=== PATIENT | female | born 1990 | race Caucasian/White ===

== ENCOUNTER 2018-07-04 15:31 | Observation (INO) | payer OTHER ==
[2018-07-04] MEDS ORDERED: SODIUM CHLORIDE 1,000 ML IV STA (15:50)
--- NOTE | 2018-07-04 15:50 | PDOC ---
Rapid Medical Evaluation Chief Complaint: Pain, Acute Time Seen by Provider: 07/04/18 15:49 Medical Evaluation: Allergies Allergy/AdvReac Type Severity Reaction Status Date / Time No Known Allergies Allergy Verified 07/04/18 15:47 07/04/18 15:49 I have performed a brief in-person evaluation of this patient. The patient presents with a chief complaint of: lower abdominal pain Pertinent physical exam findings: lower abd tenderness I have ordered the following: labs, urine, stool The patient will proceed to the ED for further evaluation. Discharge Disposition - Diagnosis Abdominal pain - Referrals - Patient Instructions - Post Discharge Activity
--- NOTE | 2018-07-04 16:39 | PDOC ---
History of Present Illness - General Chief Complaint: Pain, Acute Stated Complaint: STOMACH PAIN Time Seen by Provider: 07/04/18 15:49 - History of Present Illness Initial Comments: 07/04/18 16:38 Ms. Aguilar is a 27 yo female w/ pmh of ulcerative colitis and pancreatitis who presents for evaluation of nausea, vomiting, diarrhea, and diffuse abdominal pain. Patient reports she does not follow with a GI doctor however has been taking mezalamine proscribed through various ERs for her UC w/ lessening efficacy for the past year. Patient reports she presented to [facility] ER 4 weeks ago for similar symptoms and was given steroids which improved symptoms. Most recent episode started 5 days ago on 06/29 and she went to [facility] for evaluation. Patient was given steroids then with some relief of symptoms however symptoms returned, prompting return today. Patient had imaging only of lower extremities for some leg swelling at that time. Patient reports she has had single emesis this AM and multiple episodes of bloody bowel movements for the last several days. She has also had fevers responsive to tylenol as well. The patient denies chest pain, shortness of breath, headache and dizziness. Denies chills and constipation. Denies dysuria, frequency, urgency and hematuria. Past History - Past Medical History Allergies/Adverse Reactions: Allergies Allergy/AdvReac Type Severity Reaction Status Date / Time No Known Allergies Allergy Verified 07/04/18 15:47 COPD: No GI Disorders: Yes (ULCERATIVE COLITIS) - Immunization History Immunization Up to Date: Yes - Suicide/Smoking/Psychosocial Hx Smoking History: Never smoked Hx Alcohol Use: No Drug/Substance Use Hx: No Review of Systems - Review of Systems Comments:: 07/04/18 16:39 GENERAL/CONSTITUTIONAL: +Fever as described. No chills. No weakness. HEAD, EYES, EARS, NOSE AND THROAT: No change in vision. No ear pain or discharge. No sore throat. CARDIOVASCULAR: No chest pain or shortness of breath RESPIRATORY: No cough, wheezing, or hemoptysis. GASTROINTESTINAL: +N/V/D as described. GENITOURINARY: No dysuria, frequency, or change in urination. MUSCULOSKELETAL: No joint or muscle swelling or pain. No neck or back pain. SKIN: No rash NEUROLOGIC: No headache, vertigo, loss of consciousness, or change in strength/ sensation. ENDOCRINE: No increased thirst. No abnormal weight change HEMATOLOGIC/LYMPHATIC: No anemia, easy bleeding, or history of blood clots. ALLERGIC/IMMUNOLOGIC: No hives or skin allergy. *Physical Exam - Vital Signs Last Vital Signs Temp Pulse Resp BP Pulse Ox 98.5 F 102 H 18 114/73 97 07/04/18 15:48 07/04/18 15:48 07/04/18 15:48 07/04/18 15:48 07/04/18 15:48 - Physical Exam Comments: 07/04/18 16:39 GENERAL: Awake, alert, and fully oriented, in no acute distress HEAD: No signs of trauma, normocephalic, atraumatic EYES: PERRLA, EOMI, sclera anicteric, conjunctiva clear ENT: Auricles normal inspection, hearing grossly normal, nares patent, oropharynx clear without exudates. Moist mucosa NECK: Normal ROM, supple, no lymphadenopathy, JVD, or masses LUNGS: No distress, speaks full sentences, clear to auscultation bilaterally HEART: Regular rate and rhythm, normal S1 and S2, no murmurs, rubs or gallops, peripheral pulses normal and equal bilaterally. ABDOMEN: +Diffuse abdominal TTP. Soft, normoactive bowel sounds. No guarding, no rebound. No masses EXTREMITIES: Normal inspection, Normal range of motion, no edema. No clubbing or cyanosis. NEUROLOGICAL: Cranial nerves II through XII grossly intact. Normal speech, normal gait, no focal sensorimotor deficits SKIN: Warm, Dry, normal turgor, no rashes or lesions noted. ED Treatment Course - LABORATORY CBC & Chemistry Diagram: 07/04/18 17:30 07/04/18 16:55 Medical Decision Making - Medical Decision Making 07/04/18 18:48 Ms. Aguilar is a 27 yo female w/ pmh as described who presents for evaluation of symptoms concerning for UC flare vs. pancreatitis vs. acute abdominal process. Upon repeat interview patient endorsed that she has never had colonoscopy. Patient has had no recent imaging at this time. Will evaluate patient with broad laboratory workup as well as CT abd/pelvis for further evaluation of pain. Patient also given IV fluids and tylenol for symptomatic relief at this time. Patient refused rectal exam at this time. 07/04/18 19:14 Patient signed out to Dr. Cabrera for further evaluation. *DC/Admit/Observation/Transfer Diagnosis at time of Disposition: Abdominal pain Qualifiers: Abdominal location: unspecified location Qualified Code(s): R10.9 - Unspecified abdominal pain - Referrals - Patient Instructions - Post Discharge Activity
[2018-07-04] MEDS ORDERED: ACETAMINOPHEN 1000 MG/100 ML VIAL (NON FORMULARY) IVPB ONE (17:07)
[2018-07-04] MEDS ORDERED: ACETAMINOPHEN INJECTION 100 ML IVPB ONE (17:33)
[2018-07-04 17:55] LABS: BASO % 0.4 % (0-2.0); EOS % 1.2 % (0-4.5); HEMATOCRIT 33.6 % (32.4-45.2); HEMOGLOBIN 10.6 GM/dL (10.7-15.3); LYMPH % 43.9 % (8-40); MCHC 31.5 g/dl (32.0-36.0); MEAN CELL VOLUME 76.2 fl (80-96); MEAN PLT VOLUME 7.2 fl (7.5-11.1); MONO % 9.1 % (3.8-10.2); NEUT % 45.4 % (42.8-82.8); PLATELET COUNT 411 K/MM3 (134-434); RBC 4.41 M/mm3 (3.60-5.2); RDW 17.6 % (11.6-15.6); WHITE BLOOD COUNT 6.6 K/mm3 (4.0-10.0)
[2018-07-04 18:10] LABS: INR 1.09 (0.83-1.09); PROTHROMBIN TIME (PATIENT) 12.9 SEC (9.7-13.0)
[2018-07-04 18:18] LABS: EPI CELLS 1.8 /HPF (0-5/HPF); PH,URINE 5.5 (5.0-8.0); URINE APPEARANCE CLEAR; URINE BACTERIA 131.2 /hpf (NEGATIVE); URINE BILIRUBIN NEGATIVE (NEGATIVE); URINE CASTS 7 /lpf (0-8); URINE COLOR YELLOW; URINE GLUCOSE (UA) NEGATIVE (NEGATIVE); URINE KETONE 1+ (NEGATIVE); URINE LEUK ESTERASE NEGATIVE (NEGATIVE); URINE NITRITE NEGATIVE (NEGATIVE); URINE PROTEIN NEGATIVE (NEGATIVE); URINE UROBILINOGEN 0.2 mg/dL (0.2-1.0); URINE WBC 2 /hpf (0-5)
[2018-07-04 18:23] LABS: ALBUMIN 2.8 g/dl (3.4-5.0); ALK PHOS 104 U/L (45-117); ANION GAP 7 MMOL/L (8-16); BILIRUBIN,TOTAL 0.2 mg/dL (0.2-1); BLOOD UREA NITROGEN 8 mg/dL (7-18); CALCIUM 8.4 mg/dL (8.5-10.1); CHLORIDE 101 mmol/L (98-107); CO2 28 mmol/L (21-32); CREATININE 0.6 mg/dL (0.55-1.3); GLUCOSE,RANDOM 92 mg/dL (74-106); LIPASE 90 U/L (73-393); POTASSIUM 4.4 mmol/L (3.5-5.1); SGOT/AST 8 U/L (15-37); SGPT/ALT 12 U/L (13-61); SODIUM 135 mmol/L (136-145); TOT PROT 6.8 g/dl (6.4-8.2)
[2018-07-04 19:19] LABS: URINE RBC 5.1 /hpf (0-4)
--- NOTE | 2018-07-04 19:23 | PDOC ---
*Physical Exam - Vital Signs Last Vital Signs Temp Pulse Resp BP Pulse Ox 98.6 F 100 H 18 108/68 97 07/04/18 18:24 07/04/18 18:24 07/04/18 15:48 07/04/18 18:24 07/04/18 18:24 ED Treatment Course - LABORATORY CBC & Chemistry Diagram: 07/04/18 17:30 07/04/18 16:55 - ADDITIONAL ORDERS Additional order review: Laboratory Results 07/04/18 07/04/18 07/04/18 18:17 18:07 17:07 PT with INR INR Sodium Potassium Chloride Carbon Dioxide Anion Gap BUN Creatinine Creat Clearance w eGFR Random Glucose Lactic Acid 1.4 Calcium Total Bilirubin AST ALT Alkaline Phosphatase C-Reactive Protein Total Protein Albumin Lipase Serum , Qual Negative Urine Color Yellow Urine Appearance Clear Urine pH 5.5 Ur Specific [place] 1.020 Urine Protein Negative Urine Glucose (UA) Negative Urine Ketones 1+ H Urine Blood 2+ H Urine Nitrite Negative Urine Bilirubin Negative Urine Urobilinogen 0.2 Ur Leukocyte Esterase Negative Urine WBC (Auto) 2 Urine RBC (Auto) 5.1 Urine Casts (Auto) 7 U Epithel Cells (Auto) 1.8 Urine Bacteria (Auto) 131.2 07/04/18 07/04/18 16:55 16:55 PT with INR 12.90 INR 1.09 Sodium 135 L Potassium 4.4 Chloride 101 Carbon Dioxide 28 Anion Gap 7 L BUN 8 Creatinine 0.6 Creat Clearance w eGFR 119.04 Random Glucose 92 Lactic Acid Calcium 8.4 L Total Bilirubin 0.2 AST 8 L ALT 12 L Alkaline Phosphatase 104 C-Reactive Protein 11.0 H Total Protein 6.8 Albumin 2.8 L Lipase 90 Serum , Qual Urine Color Urine Appearance Urine pH Ur Specific [place] Urine Protein Urine Glucose (UA) Urine Ketones Urine Blood Urine Nitrite Urine Bilirubin Urine Urobilinogen Ur Leukocyte Esterase Urine WBC (Auto) Urine RBC (Auto) Urine Casts (Auto) U Epithel Cells (Auto) Urine Bacteria (Auto) 07/04/18 17:30 RBC 4.41 MCV 76.2 L MCHC 31.5 L RDW 17.6 H MPV 7.2 L Neutrophils % 45.4 Lymphocytes % 43.9 H Monocytes % 9.1 Eosinophils % 1.2 Basophils % 0.4 - Medications Given in the ED: ED Medications Discontinued Medications Generic Name Dose Route Start Last Admin Trade Name Anahi PRN Reason Stop Dose Admin Acetaminophen 1,000 mg 07/04/18 17:07 07/04/18 17:39 Ofirmev Injection - IVPB 07/04/18 17:08 1,000 mg ONCE ONE Administration Sodium Chloride 1,000 mls @ 1,000 mls/hr 07/04/18 15:50 07/04/18 17:32 Normal Saline - IV 07/04/18 16:49 1,000 mls/hr ASDIR STA Administration Medical Decision Making - Medical Decision Making 07/04/18 19:23 Pt signed out to me by Dr. Caicedo. 27F who presents with abd pain pending CTAP. 07/04/18 20:34 CTAP Impression: Fluid-filled slightly dilated small bowel loops that may be on the basis of ileus. Normal- appearing terminal ileum and appendix. Thickening of the distal transverse colon, thickening of the descending and proximal sigmoid colon wall as well as probable thickening of the rectosigmoid junction wall. Findings are suggestive of colitis, inflammatory versus infectious. Consider ulcerative colitis in view of the clinical history. GI consult is suggested. Case d/w GI, Dr. Aquino, who agrees with our decision to admit pt and have colonoscopy in the am. Will begin abx. Pt microblogged for admission. 07/04/18 21:[address] Hart for admission. *DC/Admit/Observation/Transfer Diagnosis at time of Disposition: Colitis Abdominal pain Qualifiers: Abdominal location: unspecified location Qualified Code(s): R10.9 - Unspecified abdominal pain - Discharge Dispostion Condition at time of disposition: Guarded Decision to Admit order: Yes - Referrals - Patient Instructions - Post Discharge Activity
[2018-07-04] MEDS ORDERED: CIPROFLOXACIN 400 MG/D5W 400 MG/200 ML IVPB IVPB ONE (20:40)
--- NOTE | 2018-07-04 21:28 | PN ---
Teaching Attending Note Name of Resident: Janette Hart ATTENDING PHYSICIAN STATEMENT I saw and evaluated the patient. I reviewed the resident's note and discussed the case with the resident. I agree with the resident's findings and plan as documented. SUBJECTIVE: Patient is a 27 year old woman with a PMH of ulcertive colitis on mesalamine, anemia and pancreatitis, who presents to the ER with complaint of nausea, vomiting, bloody diarrhea, and diffuse abdominal pain. The patient reportedly presented to [facility] ER 4 weeks ago for similar symptoms and was given steroids which improved her symptoms. She states she went to [place] ER for evaluation on 06/29/18, was given IV steroids then with some relief of symptoms however symptoms returned, prompting return today. The patient denies chest pain , shortness of breath, headache and dizziness. The patient denies fever, chills constipation. The patient denies dysuria, frequency, urgency and hematuria. Says she has had up to 10 bouts of UC flareup since her diagnosis about 1 year ago. She does not remember the name of her GI doctor or the dose/frequency of her mesalamine. She is currently having her period. OBJECTIVE: Alert Vital Signs Period Temp Pulse Resp BP Sys/Tubbs Pulse Ox Last 24 Hr 98.5 F-98.6 F 100-102 18 108-114/68-73 97-97 HEENT: No Jaundice, eye redness or discharge, PERRLA, EOMI. Normocephalic, atraumatic. External ears are normal and hearing is grossly intact. No nasal discharge. Neck: Supple, nontender. No palpable adenopathy or thyromegaly. No JVD Chest: Good effort. Clear to auscultation and percussion. Heart: Regular. No S3, rub or murmur Abdomen: Not distended, soft, diffuse tenderness and no HSM. No rebound or guarding. Normal bowel sounds. Ext: Peripheral pulses intact. No leg edema. Skin: Warm and dry. No petechiae, rash or ecchymosis. Neuro: Alert. Oriented x3. CN 2-12 grossly intact. Sensation grossly intact in all four extremities and DTR are symmetric. Psych: Appropriate mood and affect. Good insight. Current Medications Generic Name Dose Route Start Last Admin Trade Name Freq PRN Reason Stop Dose Admin Sodium Chloride 1,000 mls @ 83 mls/hr 07/04/18 22:00 Normal Saline - IV ASDIR VARINDER Morphine Sulfate 2 mg 07/04/18 21:53 Morphine Sulfate IVPUSH Q6H PRN PAIN LEVEL 6-10 Abnormal Lab Results 07/04/18 07/04/18 07/04/18 16:55 17:30 17:30 Hgb 10.6 L MCV 76.2 L MCH 24.0 L MCHC 31.5 L RDW 17.6 H MPV 7.2 L Lymphocytes % 43.9 H ESR 38 H Sodium 135 L Anion Gap 7 L Calcium 8.4 L AST 8 L ALT 12 L C-Reactive Protein 11.0 H Albumin 2.8 L Urine Ketones Urine Blood 07/04/18 18:07 Hgb MCV MCH MCHC RDW MPV Lymphocytes % ESR Sodium Anion Gap Calcium AST ALT C-Reactive Protein Albumin Urine Ketones 1+ H Urine Blood 2+ H ASSESSMENT AND PLAN: 1. Flare-up of Ulcerative Colitis - CT abdomen/pelvis showed fluid filled, slightly dilated small bowel loops; thickening of distal transverse colon and thickening of descending and proximal sigmoid colon suggestive of colitis. GI consulted and will possibly do colonoscopy tomorrow. Will send stool for culture , C.Diff toxin, WBC and keep her NPO. Treat with IV Lactated Ringers at 75 ml/ hour, IV Cipro and Flagyl. Use morphine IV for pain control. 2. Hypoalbuminemia - Possibly due to combined effects of malnutrition and inflammation associated with comorbid chronic conditions. Will ensure adequate dietary protein intake and also consult agricultural services director. 3. Low MCV Anemia - Likely multifactorial. Will do basic anemia work up including serial stool guaiacs, reticulocyte count and iron studies. 4. DVT prophylaxis - Lovenox 40 mg SQ q 24 hours. 5. Advance directives - Full code
[2018-07-04] MEDS ORDERED: SODIUM CHLORIDE 1,000 ML IV SCH (22:00)
--- NOTE | 2018-07-04 22:04 | HP ---
CHIEF COMPLAINT: abdominal pain and bloody diarrhea PCP: HISTORY OF PRESENT ILLNESS: Patient is a 27 y/o female with a history of ulcerative colitis and anemia who presents for abdominal pain and bloody diarrhea. Patient reports on she had ankle swelling went to [place] and she received IV steroids. Over the weekend she was feeling feverish and for the last few days she has been having abdominal pain with non stop bloody bowel movements with sharp diffuse abdominal pain. Over a year ago she was at [facility] and araiza a partial colonoscopy where she was diagnosed with ulcerative colitis. She reports she does not follow up with her GI and does not remember his name, she takes mesalamine for her UC and does not know the dose. She reports the last time she took her medicine was . She has been hospitalized over ten times in the last year and was told she may have to change treatment. Patient denies any familial history of GI upset. Patient has her menstrual period today. ER course was notable for: (1) NS (2) ofirmev (3) Recent Travel: PAST MEDICAL HISTORY: Ulcerative colitis and anemia PAST SURGICAL HISTORY: 360 liposuction at [facility] within the last year Social History: Smoking: denies Alcohol: denies Drugs: denies Family History: Allergies No Known Allergies Allergy (Verified 07/04/18 15:47) HOME MEDICATIONS: REVIEW OF SYSTEMS CONSTITUTIONAL: fever Absent: chills, diaphoresis, generalized weakness, malaise, loss of appetite, weight change HEENT: Absent: rhinorrhea, nasal congestion, throat pain, throat swelling, difficulty swallowing, mouth swelling, ear pain, eye pain, visual changes CARDIOVASCULAR: Absent: chest pain, syncope, palpitations, irregular heart rate, lightheadedness , peripheral edema RESPIRATORY: Absent: cough, shortness of breath, dyspnea with exertion, orthopnea, wheezing, stridor, hemoptysis GASTROINTESTINAL: abdominal pain, nausea, diarrhea, Absent: abdominal distension, vomiting, constipation, melena, hematochezia GENITOURINARY: Absent: dysuria, frequency, urgency, hesitancy, hematuria, flank pain, genital pain MUSCULOSKELETAL: Absent: myalgia, arthralgia, joint swelling, back pain, neck pain SKIN: Absent: rash, itching, pallor HEMATOLOGIC/IMMUNOLOGIC: Absent: easy bleeding, easy bruising, lymphadenopathy, frequent infections ENDOCRINE: Absent: unexplained weight gain, unexplained weight loss, heat intolerance, cold intolerance NEUROLOGIC: Absent: headache, focal weakness or paresthesias, dizziness, unsteady gait, seizure, mental status changes, bladder or bowel incontinence PSYCHIATRIC: Absent: anxiety, depression, suicidal or homicidal ideation, hallucinations. PHYSICAL EXAMINATION Vital Signs Temperature 98.6 F 07/04/18 18:24 Pulse Rate 100 H 07/04/18 18:24 Respiratory Rate 18 07/04/18 15:48 Blood Pressure 108/68 07/04/18 18:24 O2 Sat by Pulse Oximetry (%) 97 07/04/18 18:24 GENERAL: Awake, alert, and fully oriented, in no acute distress. HEAD: Normal with no signs of trauma. EYES: Pupils equal, round and reactive to light, extraocular movements intact, EARS, NOSE, THROAT: Moist mucous membranes. LUNGS: Breath sounds equal, clear to auscultation bilaterally. No wheezes, and no crackles. No accessory muscle use. HEART: Regular rate and rhythm, normal S1 and S2 without murmur, rub or gallop. ABDOMEN: Soft, diffusely tender with palpation, normal bowel sounds, refused rectal exam MUSCULOSKELETAL: Normal range of motion at all joints. No CVA tenderness. LOWER EXTREMITIES: 2+ pulses, warm, well-perfused. No calf tenderness. No peripheral edema. NEUROLOGICAL: Cranial nerves II-XII intact. Normal speech. Normal gait. PSYCHIATRIC: Cooperative. Good eye contact. Appropriate mood and affect. SKIN: Warm, dry, normal turgor, no rashes or lesions noted, normal capillary refill. CBCD WBC 6.6 K/mm3 (4.0-10.0) 07/04/18 17:30 RBC 4.41 M/mm3 (3.60-5.2) 07/04/18 17:30 Hgb 10.6 GM/dL (10.7-15.3) L 07/04/18 17:30 Hct 33.6 % (32.4-45.2) 07/04/18 17:30 MCV 76.2 fl (80-96) L 07/04/18 17:30 MCHC 31.5 g/dl (32.0-36.0) L 07/04/18 17:30 RDW 17.6 % (11.6-15.6) H 07/04/18 17:30 Plt Count 411 K/MM3 (134-434) 07/04/18 17:30 MPV 7.2 fl (7.5-11.1) L 07/04/18 17:30 CMP Sodium 135 mmol/L (136-145) L 07/04/18 16:55 Potassium 4.4 mmol/L (3.5-5.1) 07/04/18 16:55 Chloride 101 mmol/L (98-107) 07/04/18 16:55 Carbon Dioxide 28 mmol/L (21-32) 07/04/18 16:55 Anion Gap 7 MMOL/L (8-16) L 07/04/18 16:55 BUN 8 mg/dL (7-18) 07/04/18 16:55 Creatinine 0.6 mg/dL (0.55-1.3) 07/04/18 16:55 Creat Clearance w eGFR 119.04 (>60) 07/04/18 16:55 Calcium 8.4 mg/dL (8.5-10.1) L 07/04/18 16:55 Total Bilirubin 0.2 mg/dL (0.2-1) 07/04/18 16:55 AST 8 U/L (15-37) L 07/04/18 16:55 ALT 12 U/L (13-61) L 07/04/18 16:55 Alkaline Phosphatase 104 U/L (45-117) 07/04/18 16:55 Total Protein 6.8 g/dl (6.4-8.2) 07/04/18 16:55 Albumin 2.8 g/dl (3.4-5.0) L 07/04/18 16:55 ASSESSMENT/PLAN: Patient is a 27 y/o female with a history of Ulcerative Colitis and anemia who presents for abdominal pain and bloody diarrhea. #abdominal pain and bloody diarrhea, 2/2 to ulcerative colitis flare vs infectious colitis - spoke to GI Dr. Rizzo, with slight suspect UC history monitor for now and discuss further ulcerative colitis history of patient, determine GI doctor and PCP which patient does not remember or have further information for at this time - keep patient NPO - afebrile, no WBC, f/u stool cultures - Cipro/ Flagyl cover for possible infectious - f/u ESR and CRP for UC , with elevated numbers and consistent bowel movements patient would have moderate flare - morphine 2mg q6h for pain, avoid NSAID's - CTAP: fluid filled slightly dilated small bowel loops, thickening distal transverse colon, thickening of descending and proximal sigmoid colon suggestive of colitis #anemia - likley 2/2 to UC hx - regular menstruation without heavy episodes - f/u hx, patient denies medication for treatment - vitals stable - f/u iron studies, retic count #DVT PPX - SCD's FEN - NPO for now - LR @ 75 Dispo: monitor on OBS, f/u GI Visit type - Emergency Visit Emergency Visit: Yes ED Registration Date: 07/04/18 Care time: The patient presented to the Emergency Department on the above date and was hospitalized for further evaluation of their emergent condition. - New Patient This patient is new to me today: Yes Date on this admission: 07/05/18 - Critical Care Critical Care patient: No
[2018-07-04] MEDS ORDERED: morphine SULFATE 4 MG/ML VIAL ONE (22:50)
[2018-07-04] MEDS: morphine SULFATE 4 MG/ML VIAL IVPUSH PRN (23:01)
[2018-07-05 01:15] VITALS: BMI 21.9
[2018-07-05] MEDS: LACTATED RINGERS SOLUTION 1,000 ML/1,000 ML INFUS.BAG IV SCH ×2 (02:37→17:15)
[2018-07-05] MEDS: morphine SULFATE 4 MG/ML VIAL IVPUSH PRN ×2 (06:46→19:10)
[2018-07-05 07:30] LABS: BASO % 0.2 % (0-2.0); EOS % 1.2 % (0-4.5); HEMATOCRIT 29.7 % (32.4-45.2); HEMOGLOBIN 9.3 GM/dL (10.7-15.3); LYMPH % 33.1 % (8-40); MCH 23.7 pg (25.7-33.7); MCHC 31.5 g/dl (32.0-36.0); MEAN CELL VOLUME 75.4 fl (80-96); MEAN PLT VOLUME 7.2 fl (7.5-11.1); MONO % 8.8 % (3.8-10.2); NEUT % 56.7 % (42.8-82.8); PLATELET COUNT 417 K/MM3 (134-434); RBC 3.94 M/mm3 (3.60-5.2); RDW 17.9 % (11.6-15.6); WHITE BLOOD COUNT 6.5 K/mm3 (4.0-10.0)
[2018-07-05 07:50] LABS: ALBUMIN 2.4 g/dl (3.4-5.0); ALK PHOS 88 U/L (45-117); ANION GAP 7 MMOL/L (8-16); BILIRUBIN,TOTAL 0.3 mg/dL (0.2-1); BLOOD UREA NITROGEN 7 mg/dL (7-18); CALCIUM 7.9 mg/dL (8.5-10.1); CHLORIDE 105 mmol/L (98-107); CO2 25 mmol/L (21-32); CREATININE 0.5 mg/dL (0.55-1.3); GLUCOSE,RANDOM 90 mg/dL (74-106); MAGNESIUM 2.1 mg/dL (1.8-2.4); POTASSIUM 3.9 mmol/L (3.5-5.1); SGOT/AST 8 U/L (15-37); SGPT/ALT 7 U/L (13-61); SODIUM 137 mmol/L (136-145); TOT PROT 5.9 g/dl (6.4-8.2)
--- NOTE | 2018-07-05 09:06 | PN ---
Physical Exam: SUBJECTIVE: Patient seen and examined. Pt. states stomach has been hurting for for over a week. Pt. states that this is the first time her ankle has began hurting with a UC flare. Pt. endorses loose BM. PT. states that the Mesalamine did not work for her and that her last dose was on before she went to [place]. Pt. states that the physicians there told her to stop taking it. Pt. was worked up with Abdominal CT and US. Given IV steroids to treat ankle swelling and pain. OBJECTIVE: Vital Signs Period Temp Pulse Resp BP Sys/Tubbs Pulse Ox Last 24 Hr 98.4 F-99.6 F 68-102 18-18 102-114/59-73 97-100 GENERAL: The patient is awake, alert, and fully oriented, in mild distress. HEAD: Normal with no signs of trauma. EYES: PERRL, extraocular movements intact, sclera anicteric, conjunctiva clear. ENT: Ears normal, nares patent, moist mucous membranes. LUNGS: Breath sounds equal, clear to auscultation bilaterally, no wheezes, no crackles, no accessory muscle use. HEART: Regular rate and rhythm, S1, S2 without murmur ABDOMEN: Soft, diffuse tenderness not increased with palpation, nondistended, normoactive bowel sounds, no guarding EXTREMITIES: 2+ pulses, warm, well-perfused, no edema, Left ankle tenderness NEUROLOGICAL: Cranial nerves II through XII grossly intact. Normal speech, gait not observed. PSYCH: Normal mood, normal affect. SKIN: Warm, dry, normal turgor, no rashes or lesions noted Laboratory Results - last 24 hr 07/04/18 07/04/18 07/04/18 16:55 16:55 16:55 WBC RBC Hgb Hct MCV MCH MCHC RDW Plt Count MPV Absolute Neuts (auto) Neutrophils % Lymphocytes % Monocytes % Eosinophils % Basophils % Nucleated RBC % ESR Retic Count PT with INR 12.90 INR 1.09 Sodium 135 L Potassium 4.4 Chloride 101 Carbon Dioxide 28 Anion Gap 7 L BUN 8 Creatinine 0.6 Creat Clearance w eGFR 119.04 Random Glucose 92 Lactic Acid Calcium 8.4 L Phosphorus Magnesium Total Bilirubin 0.2 AST 8 L ALT 12 L Alkaline Phosphatase 104 C-Reactive Protein 11.0 H Total Protein 6.8 Albumin 2.8 L Lipase 90 Serum , Qual Urine Color Urine Appearance Urine pH Ur Specific [place] Urine Protein Urine Glucose (UA) Urine Ketones Urine Blood Urine Nitrite Urine Bilirubin Urine Urobilinogen Ur Leukocyte Esterase Urine WBC (Auto) Urine RBC (Auto) Urine Casts (Auto) U Epithel Cells (Auto) Urine Bacteria (Auto) Blood Type O POSITIVE Antibody Screen Negative 07/04/18 07/04/18 07/04/18 17:07 17:30 17:30 WBC 6.6 RBC 4.41 Hgb 10.6 L Hct 33.6 MCV 76.2 L MCH 24.0 L MCHC 31.5 L RDW 17.6 H Plt Count 411 MPV 7.2 L Absolute Neuts (auto) 3.0 Neutrophils % 45.4 Lymphocytes % 43.9 H Monocytes % 9.1 Eosinophils % 1.2 Basophils % 0.4 Nucleated RBC % 0 ESR 38 H Retic Count PT with INR INR Sodium Potassium Chloride Carbon Dioxide Anion Gap BUN Creatinine Creat Clearance w eGFR Random Glucose Lactic Acid 1.4 Calcium Phosphorus Magnesium Total Bilirubin AST ALT Alkaline Phosphatase C-Reactive Protein Total Protein Albumin Lipase Serum , Qual Urine Color Urine Appearance Urine pH Ur Specific [place] Urine Protein Urine Glucose (UA) Urine Ketones Urine Blood Urine Nitrite Urine Bilirubin Urine Urobilinogen Ur Leukocyte Esterase Urine WBC (Auto) Urine RBC (Auto) Urine Casts (Auto) U Epithel Cells (Auto) Urine Bacteria (Auto) Blood Type Antibody Screen 07/04/18 07/04/18 07/05/18 18:07 18:17 06:05 WBC 6.5 RBC 3.94 Hgb 9.3 L Hct 29.7 L MCV 75.4 L MCH 23.7 L MCHC 31.5 L RDW 17.9 H Plt Count 417 MPV 7.2 L Absolute Neuts (auto) 3.7 Neutrophils % 56.7 D Lymphocytes % 33.1 D Monocytes % 8.8 Eosinophils % 1.2 Basophils % 0.2 Nucleated RBC % 0 ESR Retic Count PT with INR INR Sodium Potassium Chloride Carbon Dioxide Anion Gap BUN Creatinine Creat Clearance w eGFR Random Glucose Lactic Acid Calcium Phosphorus Magnesium Total Bilirubin AST ALT Alkaline Phosphatase C-Reactive Protein Total Protein Albumin Lipase Serum , Qual Negative Urine Color Yellow Urine Appearance Clear Urine pH 5.5 Ur Specific [place] 1.020 Urine Protein Negative Urine Glucose (UA) Negative Urine Ketones 1+ H Urine Blood 2+ H Urine Nitrite Negative Urine Bilirubin Negative Urine Urobilinogen 0.2 Ur Leukocyte Esterase Negative Urine WBC (Auto) 2 Urine RBC (Auto) 5.1 Urine Casts (Auto) 7 U Epithel Cells (Auto) 1.8 Urine Bacteria (Auto) 131.2 Blood Type Antibody Screen 07/05/18 07/05/18 06:05 06:05 WBC RBC Hgb Hct MCV MCH MCHC RDW Plt Count MPV Absolute Neuts (auto) Neutrophils % Lymphocytes % Monocytes % Eosinophils % Basophils % Nucleated RBC % ESR Retic Count 1.75 H PT with INR INR Sodium 137 Potassium 3.9 Chloride 105 Carbon Dioxide 25 Anion Gap 7 L BUN 7 Creatinine 0.5 L Creat Clearance w eGFR 146.91 Random Glucose 90 Lactic Acid Calcium 7.9 L Phosphorus 3.0 Magnesium 2.1 Total Bilirubin 0.3 AST 8 L ALT 7 L Alkaline Phosphatase 88 C-Reactive Protein 8.7 H Total Protein 5.9 L Albumin 2.4 L Lipase Serum , Qual Urine Color Urine Appearance Urine pH Ur Specific [place] Urine Protein Urine Glucose (UA) Urine Ketones Urine Blood Urine Nitrite Urine Bilirubin Urine Urobilinogen Ur Leukocyte Esterase Urine WBC (Auto) Urine RBC (Auto) Urine Casts (Auto) U Epithel Cells (Auto) Urine Bacteria (Auto) Blood Type Antibody Screen Active Medications Current Medications Lactated Ringer's (Lactated Ringers Solution) 1,000 ml in 1,000 mls @ 75 mls/ hr IV ASDIR VARINDER Last Admin: 07/05/18 02:37 Dose: 75 mls/hr Morphine Sulfate (Morphine Sulfate) 2 mg IVPUSH Q6H PRN PRN Reason: PAIN LEVEL 6-10 Last Admin: 07/05/18 06:46 Dose: 2 mg ASSESSMENT/PLAN: Pt. is 27 y.o. F w/ PMHx. of Ulcerative Colitis and anemia admitted for abdominal pain and blood diarrhea secondary to ulcerative colitis flare. #Ulcerative Colitis Flare NPO Pt. had temperature to 100.9 in AM 07/05/18 c/w Flagyl and Ciprofloxacin as cannot r/o infection f/u Stool cultures, if negative will start steroids (budesonid 9mg for 4 weeks or Prednisone 40mg consider starting mesalamine enemas 3-4x daily given involvement of the distal transverse colon in addition to mesalamine suppositories twice daily tentatively planning for flexsigmoid tomorrow vs. colonoscopy on Tuesday after remission of flare and follow-up with GI as Pt. denies having a current GI physician. ESR and CRP elevated @ 38 and 8.7 Morphine 2mg Q6H for pain Can give Tylenol for fever CT A/P showed fluid filled slightly dilated small bowel loops, thickening distal transverse colon, thickening of descending and proximal sigmoid colon consistent with inflammation #Anemia Reticulocyte Count 1.77H HgB: 9.3, will c/w trend Normal transfusion threshold #FEN LR@75ml/hr Monitor electrolytes and replete as needed NPO #DVT Ppx. SCDs Visit type - Emergency Visit Emergency Visit: Yes ED Registration Date: 07/04/18 Care time: The patient presented to the Emergency Department on the above date and was hospitalized for further evaluation of their emergent condition. - New Patient This patient is new to me today: Yes Date on this admission: 07/05/18 - Critical Care Critical Care patient: No - Discharge Referral Referred to [facility] Med P.C.: No
[2018-07-05] MEDS ORDERED: ENOXAPARIN NA (PORCINE) 40 MG/0.4 ML DISP.SYRIN SQ SCH (10:00)
[2018-07-05] MEDS ORDERED: ACETAMINOPHEN 1000 MG/100 ML VIAL (NON FORMULARY) IVPB ONE (10:00)
[2018-07-05] MEDS ORDERED: MORPHINE SULFATE 2 MG/ML VIAL IVPUSH ONE (10:00)
--- NOTE | 2018-07-05 14:34 | CON.GI ---
Consult Consult Specialty:: Gastroenterology Reason for Consultation:: Abdominal pain, rectal bleeding - History of Present Illness History of Present Illness: 27yo female h/o reported ulcerative colitis (?previously on mesalamine) presents with abdominal pain and bloody diarrhea. Pt reports persisting abdominal pain and bloody diarrhea over the past 1 year, worsening over the past few days. She describes 10-12 bms daily with blood, including nocturnal awakening. She reports fever over the weekend with worsening lower abdominal pain and joint pains (mostly ankle) prompting hospitalization. Mild nausea and occasional vomiting noted. Also with weight loss ~10lbs over 3-4 weeks. Denies skin rashes or eye pain. Pt was seen at [facility] GI clinic 7-8 months ago and advised colonoscopy however did not show due to URTI symptoms. Pt then seen at [facility] ?11/2017 states she had sigmoidoscopy and told she had ulcerative colitis , started on mesalamine however states it did not help and recently stopped it due to concern for worsening ankle pain/swelling. Pt then seen at [facility] states she received IV steroids and advised outpt GI follow up (was not dc'd on prednisone however). Records not available for review. Not following regularly with any GI provider. No known family h/o IBD or colon ca. Pt denies smoking, etoh, IVDA. - History Source History Provided By: Patient Limitations to Obtaining History: No Limitations - Past Medical History ...: No - Alcohol/Substance Use Hx Alcohol Use: No - Smoking History Smoking history: Never smoked Have you smoked in the past 12 months: No Home Medications - Allergies Allergies/Adverse Reactions: Allergies Allergy/AdvReac Type Severity Reaction Status Date / Time No Known Allergies Allergy Verified 07/04/18 15:47 Review of Systems - Review of Systems Constitutional: reports: Chills, Fever HENT: reports: No Symptoms Cardiovascular: reports: No Symptoms Respiratory: reports: No Symptoms Gastrointestinal: reports: Abdominal Pain, Diarrhea Musculoskeletal: reports: Joint Pain Physical Exam-GI Vital Signs: Vital Signs Temperature 98.6 F 07/05/18 14:24 Pulse Rate 74 07/05/18 14:24 Respiratory Rate 18 07/05/18 14:24 Blood Pressure 97/47 L 07/05/18 14:24 O2 Sat by Pulse Oximetry (%) 100 07/05/18 06:53 Constitutional: Yes: Well Nourished, No Distress, Calm HENT: Yes: WNL Cardiovascular: Yes: WNL, Regular Rate and Rhythm Respiratory: Yes: WNL, Regular, CTA Bilaterally Gastrointestinal Inspection: Yes: WNL ...Palpate: Yes: Other (Abd soft, tender on palpation mostly in lower abdomen (L >R), nondistended, no rebound, guarding or rigidity) Labs: CBC, BMP 07/05/18 06:05 07/05/18 06:05 INR, PTT INR 1.09 (0.83-1.09) 07/04/18 16:55 Imaging - Results Cat Scan: Report Reviewed, Image Reviewed Problem List - Problems (1) Abdominal pain Assessment/Plan: 27 yo female h/o reported ulcerative colitis (?previously on mesalamine) presenting with worsening abdominal pain and bloody diarrhea with associated fever, weight loss and joint pains. Microcytic anemia noted and elevated inflammatory markers. CT imaging revealing mild ileus pattern, with thickening at distal transverse colon/left colon/sigmoid. Overall findings concerning for underlying IBD. Low suspicion for infectious etiology given chronic symptoms. No prior records/endo reports available for review. -Recommend monitoring Hb and for further bleeding -Clear liquid diet as tolerated -Follow up complete infectious work up (blood, urine cultures) -Check stool C difficile, cultures, ova/parasites -Check fecal calprotectin -Follow up iron studies/ferritin -Continue IV antibiotics though low suspicion for infectious diarrhea though would hold on starting steroids until infection excluded. -Pt would require endoscopic evaluation pending stool studies. Would plan for flex sig vs colonoscopy pending results and reassessment in symptoms/po tolerance, tentatively on Tuesday Discussed with medicine team Code(s): R10.9 - UNSPECIFIED ABDOMINAL PAIN Qualifiers: Abdominal location: unspecified location Qualified Code(s): R10.9 - Unspecified abdominal pain
--- NOTE | 2018-07-05 15:54 | PN ---
Teaching Attending Note Name of Resident: Trenton Keita ATTENDING PHYSICIAN STATEMENT I saw and evaluated the patient. I reviewed the resident's note and discussed the case with the resident. I agree with the resident's findings and plan as documented. SUBJECTIVE: Complains of abdominal pain and bloody diarrhea - chronic, worse over past week. Fever +. Nausea, no vomiting OBJECTIVE: Tmax 100.9, Hemodynamically Stable. Last Vital Signs Temp Pulse Resp BP Pulse Ox 98.6 F 74 18 97/47 L 100 07/05/18 14:24 07/05/18 14:24 07/05/18 14:24 07/05/18 14:24 07/05/18 06:53 HEENT - Atraumatic, Normocephalic. Heart - S1, S2, RRR Lungs - clear to auscultation Abdomen - Soft, generalized tenderness. Bowel Sounds normal. Extremities - no edema. Laboratory Results - last 24 hr 07/04/18 07/04/18 07/04/18 16:55 16:55 16:55 WBC RBC Hgb Hct MCV MCH MCHC RDW Plt Count MPV Absolute Neuts (auto) Neutrophils % Lymphocytes % Monocytes % Eosinophils % Basophils % Nucleated RBC % ESR Retic Count PT with INR 12.90 INR 1.09 Sodium 135 L Potassium 4.4 Chloride 101 Carbon Dioxide 28 Anion Gap 7 L BUN 8 Creatinine 0.6 Creat Clearance w eGFR 119.04 Random Glucose 92 Lactic Acid Calcium 8.4 L Phosphorus Magnesium Total Bilirubin 0.2 AST 8 L ALT 12 L Alkaline Phosphatase 104 C-Reactive Protein 11.0 H Total Protein 6.8 Albumin 2.8 L Lipase 90 Serum , Qual Urine Color Urine Appearance Urine pH Ur Specific [place] Urine Protein Urine Glucose (UA) Urine Ketones Urine Blood Urine Nitrite Urine Bilirubin Urine Urobilinogen Ur Leukocyte Esterase Urine WBC (Auto) Urine RBC (Auto) Urine Casts (Auto) U Epithel Cells (Auto) Urine Bacteria (Auto) Blood Type O POSITIVE Antibody Screen Negative 07/04/18 07/04/18 07/04/18 17:07 17:30 17:30 WBC 6.6 RBC 4.41 Hgb 10.6 L Hct 33.6 MCV 76.2 L MCH 24.0 L MCHC 31.5 L RDW 17.6 H Plt Count 411 MPV 7.2 L Absolute Neuts (auto) 3.0 Neutrophils % 45.4 Lymphocytes % 43.9 H Monocytes % 9.1 Eosinophils % 1.2 Basophils % 0.4 Nucleated RBC % 0 ESR 38 H Retic Count PT with INR INR Sodium Potassium Chloride Carbon Dioxide Anion Gap BUN Creatinine Creat Clearance w eGFR Random Glucose Lactic Acid 1.4 Calcium Phosphorus Magnesium Total Bilirubin AST ALT Alkaline Phosphatase C-Reactive Protein Total Protein Albumin Lipase Serum , Qual Urine Color Urine Appearance Urine pH Ur Specific [place] Urine Protein Urine Glucose (UA) Urine Ketones Urine Blood Urine Nitrite Urine Bilirubin Urine Urobilinogen Ur Leukocyte Esterase Urine WBC (Auto) Urine RBC (Auto) Urine Casts (Auto) U Epithel Cells (Auto) Urine Bacteria (Auto) Blood Type Antibody Screen 07/04/18 07/04/18 07/05/18 18:07 18:17 06:05 WBC 6.5 RBC 3.94 Hgb 9.3 L Hct 29.7 L MCV 75.4 L MCH 23.7 L MCHC 31.5 L RDW 17.9 H Plt Count 417 MPV 7.2 L Absolute Neuts (auto) 3.7 Neutrophils % 56.7 D Lymphocytes % 33.1 D Monocytes % 8.8 Eosinophils % 1.2 Basophils % 0.2 Nucleated RBC % 0 ESR Retic Count PT with INR INR Sodium Potassium Chloride Carbon Dioxide Anion Gap BUN Creatinine Creat Clearance w eGFR Random Glucose Lactic Acid Calcium Phosphorus Magnesium Total Bilirubin AST ALT Alkaline Phosphatase C-Reactive Protein Total Protein Albumin Lipase Serum , Qual Negative Urine Color Yellow Urine Appearance Clear Urine pH 5.5 Ur Specific [place] 1.020 Urine Protein Negative Urine Glucose (UA) Negative Urine Ketones 1+ H Urine Blood 2+ H Urine Nitrite Negative Urine Bilirubin Negative Urine Urobilinogen 0.2 Ur Leukocyte Esterase Negative Urine WBC (Auto) 2 Urine RBC (Auto) 5.1 Urine Casts (Auto) 7 U Epithel Cells (Auto) 1.8 Urine Bacteria (Auto) 131.2 Blood Type Antibody Screen 07/05/18 07/05/18 07/05/18 06:05 06:05 06:05 WBC RBC Hgb Hct MCV MCH MCHC RDW Plt Count MPV Absolute Neuts (auto) Neutrophils % Lymphocytes % Monocytes % Eosinophils % Basophils % Nucleated RBC % ESR 28 H Retic Count 1.75 H PT with INR INR Sodium 137 Potassium 3.9 Chloride 105 Carbon Dioxide 25 Anion Gap 7 L BUN 7 Creatinine 0.5 L Creat Clearance w eGFR 146.91 Random Glucose 90 Lactic Acid Calcium 7.9 L Phosphorus 3.0 Magnesium 2.1 Total Bilirubin 0.3 AST 8 L ALT 7 L Alkaline Phosphatase 88 C-Reactive Protein 8.7 H Total Protein 5.9 L Albumin 2.4 L Lipase Serum , Qual Urine Color Urine Appearance Urine pH Ur Specific [place] Urine Protein Urine Glucose (UA) Urine Ketones Urine Blood Urine Nitrite Urine Bilirubin Urine Urobilinogen Ur Leukocyte Esterase Urine WBC (Auto) Urine RBC (Auto) Urine Casts (Auto) U Epithel Cells (Auto) Urine Bacteria (Auto) Blood Type Antibody Screen 07/05/18 06:52 WBC RBC Hgb Hct MCV MCH MCHC RDW Plt Count MPV Absolute Neuts (auto) Neutrophils % Lymphocytes % Monocytes % Eosinophils % Basophils % Nucleated RBC % ESR Retic Count PT with INR INR Sodium Potassium Chloride Carbon Dioxide Anion Gap BUN Creatinine Creat Clearance w eGFR Random Glucose Lactic Acid Calcium Phosphorus Magnesium Total Bilirubin AST ALT Alkaline Phosphatase C-Reactive Protein Total Protein Albumin Lipase Serum , Qual Urine Color Urine Appearance Urine pH Ur Specific [place] Urine Protein Urine Glucose (UA) Urine Ketones Urine Blood Urine Nitrite Urine Bilirubin Urine Urobilinogen Ur Leukocyte Esterase Urine WBC (Auto) Urine RBC (Auto) Urine Casts (Auto) U Epithel Cells (Auto) Urine Bacteria (Auto) Blood Type O POSITIVE Antibody Screen Current Medications Generic Name Dose Route Start Last Admin Trade Name Freq PRN Reason Stop Dose Admin Lactated Ringer's 1,000 ml in 1,000 mls @ 75 mls/hr 07/05/18 02:00 07/05/18 02:37 Lactated Ringers Solution IV 75 mls/hr ASDIR VARINDER Administration Morphine Sulfate 2 mg 07/04/18 21:53 07/05/18 06:46 Morphine Sulfate IVPUSH 2 mg Q6H PRN Administration PAIN LEVEL 6-10 ASSESSMENT/PLAN: 27 year old female with history of UC (on Mesalamine) presents with abdominal pain and bloody diarrhea, intermittent for several months, worse over past few days. 1. Acute Ulcerative Colitis Flare with Fever CT A/P - Ileus, Colitis. Initially treated with Cipro/Flagyl - will continue. NPO/IV fluids. Cdiff, Stool Calprotectin, and Stool Cx pending. GI eval - possible flex sig vs colonoscopy. Mesalamine held currently. 2. Chronic Anemia likely secondary to Chronic Blood Loss. Iron/Iron Sat pending. H/H Stable. Will likely need oral Fe supplementation once oral intake resumes DVT Px - SCDs
[2018-07-05] MEDS ORDERED: CIPROFLOXACIN 400 MG/D5W 400 MG/200 ML IVPB IVPB SCH (22:00)
[2018-07-06] MEDS: LACTATED RINGERS SOLUTION 1,000 ML/1,000 ML INFUS.BAG IV SCH (02:43)
[2018-07-06] MEDS ORDERED: PT OWN MED DRAWER 7, Y5N ONE (03:13)
[2018-07-06] MEDS: morphine SULFATE 4 MG/ML VIAL IVPUSH PRN (05:26)
[2018-07-06 08:06] LABS: SERUM IRON SATURATION 5 % (15-55); TOTAL IRON BINDING CAPACITY 238 ug/dL (250-450); UIBC 225 ug/dL (131-425)
[2018-07-06 08:23] LABS: BASO % 0.1 % (0-2.0); EOS % 1.6 % (0-4.5); HEMATOCRIT 29.9 % (32.4-45.2); HEMOGLOBIN 9.3 GM/dL (10.7-15.3); LYMPH % 35.9 % (8-40); MCH 23.9 pg (25.7-33.7); MCHC 31.1 g/dl (32.0-36.0); MEAN CELL VOLUME 76.7 fl (80-96); MEAN PLT VOLUME 7.1 fl (7.5-11.1); MONO % 9.9 % (3.8-10.2); NEUT % 52.5 % (42.8-82.8); PLATELET COUNT 411 K/MM3 (134-434); RDW 17.5 % (11.6-15.6); WHITE BLOOD COUNT 5.6 K/mm3 (4.0-10.0)
[2018-07-06 08:50] LABS: CREATININE 0.5 mg/dL (0.55-1.3); PHOSPHOROUS 3.5 mg/dL (2.5-4.9); POTASSIUM 4.1 mmol/L (3.5-5.1)
[2018-07-06 08:57] VITALS: BP 100/44; PULSE 88; TEMP 98.9
--- NOTE | 2018-07-06 12:02 | DS ---
Physical Exam: SUBJECTIVE: Patient seen and examined. Pt. endorses diarrhea w/ blood x 2 episodes. RN denies any BMs overnight. Per overnight note Pt. states that she misses her daughter who is turned 11 today. OBJECTIVE: Vital Signs Period Temp Pulse Resp BP Sys/Tubbs Pulse Ox Last 24 Hr 98.5 F-98.9 F 74-88 18-20 97-104/44-59 99-99 PHYSICAL EXAM GENERAL: The patient is awake, alert, and fully oriented, in mild distress. HEAD: Normal with no signs of trauma. EYES: PERRL, extraocular movements intact, sclera anicteric, conjunctiva clear. ENT: Ears normal, nares patent, moist mucous membranes. LUNGS: Breath sounds equal, clear to auscultation bilaterally, no wheezes, no crackles, no accessory muscle use. HEART: Regular rate and rhythm, S1, S2 without murmur ABDOMEN: Soft, diffuse tenderness not increased with palpation, nondistended, normoactive bowel sounds, no guarding EXTREMITIES: 2+ pulses, warm, well-perfused, no edema, Left ankle tenderness NEUROLOGICAL: Cranial nerves II through XII grossly intact. Normal speech, gait not observed. PSYCH: Normal mood, normal affect. SKIN: Warm, dry, normal turgor, no rashes or lesions noted LABS Laboratory Results - last 24 hr 07/05/18 07/05/18 07/05/18 06:05 06:52 15:40 WBC RBC Hgb Hct MCV MCH MCHC RDW Plt Count MPV Absolute Neuts (auto) Neutrophils % Lymphocytes % Monocytes % Eosinophils % Basophils % Nucleated RBC % Sodium Potassium Chloride Carbon Dioxide Anion Gap BUN Creatinine Est GFR (CKD-EPI)AfAm Est GFR (CKD-EPI)NonAf Random Glucose Calcium Phosphorus Magnesium Iron 13 L TIBC 238 L Iron Saturation 5 L Transferrin 188 L Stool Occult Blood Cancelled Blood Type O POSITIVE 07/06/18 07/06/18 07:50 07:50 WBC 5.6 RBC 3.90 Hgb 9.3 L Hct 29.9 L MCV 76.7 L MCH 23.9 L MCHC 31.1 L RDW 17.5 H Plt Count 411 MPV 7.1 L Absolute Neuts (auto) 3.0 Neutrophils % 52.5 Lymphocytes % 35.9 Monocytes % 9.9 Eosinophils % 1.6 Basophils % 0.1 Nucleated RBC % 0 Sodium 138 Potassium 4.1 Chloride 103 Carbon Dioxide 29 Anion Gap 5 L BUN 4 L Creatinine 0.5 L Est GFR (CKD-EPI)AfAm 152.65 Est GFR (CKD-EPI)NonAf 131.71 Random Glucose 70 L Calcium 8.0 L Phosphorus 3.5 Magnesium 2.0 Iron TIBC Iron Saturation Transferrin Stool Occult Blood Blood Type HOSPITAL COURSE: Date of Admission:07/04/18 Date of Discharge: 07/06/18 Pt. admitted for abdominal pain secondary to ulcerative colitis flare. Pt. treated with IVF and IV Abx. Consult to GI appreciated. Colonoscopy was scheduled for Tuesday (07/07/18). Pt. left AMA without leaving preferred Pharmacy. Flagyl and Levaquin for 7 days sent to work pharmacy at [facility]. Minutes to complete discharge: 35 Discharge Summary Reason For Visit: ABDOMINAL PAIN Condition: Stable - Instructions Diet, Activity, Other Instructions: You came in for abdominal pain. We treated you with IVF and Abx. We are sending you with antibiotics but this is not ideal. Please take as prescribed. You are leaving AMA, Please follow up with your [employer] Work[employer]. Referrals: Yair Aquino DO [Staff Physician] - Disposition: AGAINST MEDICAL ADVICE - Home Medications Comprehensive Discharge Medication List: Ambulatory Orders levoFLOXacin [Levaquin -] 500 mg PO DAILY #7 tablet 07/06/18 metroNIDAZOLE [Flagyl -] 500 mg PO TID #21 tablet 07/06/18 This patient is new to me today: No Emergency Visit: Yes ED Registration Date: 07/04/18 Care time: The patient presented to the Emergency Department on the above date and was hospitalized for further evaluation of their emergent condition. Critical Care patient: No - Discharge Referral Referred to [facility] Med P.C.: No
--- NOTE | 2018-07-06 14:32 | PN ---
Teaching Attending Note Name of Resident: Trenton Keita ATTENDING PHYSICIAN STATEMENT I saw and evaluated the patient. I reviewed the resident's note and discussed the case with the resident. I agree with the resident's findings and plan as documented. SUBJECTIVE: Complains of ongoing abdominal pain and ongoing bloody diarrhea. OBJECTIVE: Afebrile, Hemodynamically Stable. Last Vital Signs Temp Pulse Resp BP Pulse Ox 98.9 F 88 20 100/44 L 99 07/06/18 08:57 07/06/18 08:57 07/06/18 08:57 07/06/18 08:57 07/06/18 07:00 Heart - S1, S2, RRR Lungs - clear to auscultation Abdomen - Soft, generalized tenderness. Bowel Sounds normal. Extremities - no edema. Laboratory Results - last 24 hr 07/05/18 07/05/18 07/06/18 06:05 15:40 07:50 WBC 5.6 RBC 3.90 Hgb 9.3 L Hct 29.9 L MCV 76.7 L MCH 23.9 L MCHC 31.1 L RDW 17.5 H Plt Count 411 MPV 7.1 L Absolute Neuts (auto) 3.0 Neutrophils % 52.5 Lymphocytes % 35.9 Monocytes % 9.9 Eosinophils % 1.6 Basophils % 0.1 Nucleated RBC % 0 Sodium Potassium Chloride Carbon Dioxide Anion Gap BUN Creatinine Est GFR (CKD-EPI)AfAm Est GFR (CKD-EPI)NonAf Random Glucose Calcium Phosphorus Magnesium Iron 13 L TIBC 238 L Iron Saturation 5 L Transferrin 188 L Stool Occult Blood Cancelled 07/06/18 07:50 WBC RBC Hgb Hct MCV MCH MCHC RDW Plt Count MPV Absolute Neuts (auto) Neutrophils % Lymphocytes % Monocytes % Eosinophils % Basophils % Nucleated RBC % Sodium 138 Potassium 4.1 Chloride 103 Carbon Dioxide 29 Anion Gap 5 L BUN 4 L Creatinine 0.5 L Est GFR (CKD-EPI)AfAm 152.65 Est GFR (CKD-EPI)NonAf 131.71 Random Glucose 70 L Calcium 8.0 L Phosphorus 3.5 Magnesium 2.0 Iron TIBC Iron Saturation Transferrin Stool Occult Blood Discharge Medications Medication Instructions Recorded levoFLOXacin [Levaquin -] 500 mg PO DAILY #7 tablet 07/06/18 metroNIDAZOLE [Flagyl -] 500 mg PO TID #21 tablet 07/06/18 ASSESSMENT/PLAN: 27 year old female with history of UC (on Mesalamine) presents with abdominal pain and bloody diarrhea, intermittent for several months, worse over past few days. 1. Acute Ulcerative Colitis Flare CT A/P - Ileus, Colitis. Being treated with Levofloxacin/Flagyl Cdiff, Stool Calprotectin, and Stool Cx pending. GI eval - recommend possible flex sig vs colonoscopy 07/07/18 Further recommendations as per GI 2. Microcytic Anemia likely secondary to Chronic Blood Loss. Iron deficiency Anemia with Iron 13/Iron Sat 5% H/H Stable. Recommend oral Fe supplementation. DVT Px - SCDs Patient decided to leave AMA. She was advised against it including risks which were explained to her. She accepted responsibility of the consequences of her actions. She is recommended to continue for 10 days
--- NOTE | 2018-07-06 15:31 | PN ---
Progress Note (short form) - Note Progress Note: Patient signed out AMA prior to reevaluation today
== END 2018-07-06 11:58 | disposition left against medical advice (07) ==
LOC: JER 15:31 → JERBED 20:41 → J7W 07-05 00:58
PROVIDERS: ADMIT Internal Medicine
PROC: 3E03329 Introduction of Other Anti-infective into Peripheral Vein, Percutaneous Approach (ICD-10-PCS; principal; 2018-07-04)
PROC: 3E033NZ Introduction of Analgesics, Hypnotics, Sedatives into Peripheral Vein, Percutaneous Approach (ICD-10-PCS; 2018-07-04)
PROC: 3E0337Z Introduction of Electrolytic and Water Balance Substance into Peripheral Vein, Percutaneous Approach (ICD-10-PCS; 2018-07-04)
DX: K51.90 Ulcerative colitis, unspecified, without complications (principal); R10.9 Unspecified abdominal pain; E88.09 Other disorders of plasma-protein metabolism, not elsewhere classified; D50.9 Iron deficiency anemia, unspecified; R50.9 Fever, unspecified
CPT/HCPCS: 36415; 74177-TC; 80048; 80053; 81003; 83540; 83550; 83605; 83690; 83735; 84100; 84466; 84703; 85025; 85044; 85610; 85651; 86140; 86850; 86900; 86901; 87040; 87086; 87177; 87209; 96361; 96365; 96368; 96372; 96375; 96376; 99284-25; G0378; J0131; J7030